=== PATIENT | male | born 1975 | race Caucasian/White ===

== ENCOUNTER 2024-02-11 09:36 | Emergency (ER) | payer SELFPAY ==
[2024-02-11 09:58] VITALS: BP 128/89
[2024-02-11] MEDS: VALIUM 5 MG PO (11:42)
--- NOTE | 2024-02-11 11:45 | ED.GENMED ---
History of Present Illness
General
Chief Complaint: Abdominal Symptoms
Source: patient
Exam Limitations: none
Time Seen by Provider: 02/11/24 10:52
Nursing documentation reviewed up to this point in time: agreed with
Travel History
Have you had any contact with someone who has COVID-19?: No
Do you have any symptoms of coronavirus? Fever > 100 degrees, chills, cough, shortness of breath, sore throat, loss of taste or smell, muscle aches, or headache?: No
History of Present Illness
History of Present Illness:
Patient is a 48-year-old male who reports he has had inguinal hernia on the right side for the past 3 however has not wanted to have surgery. He reports he reduces it daily and pushes the hernia from the scrotum back into his abdomen. This morning
however after pain meds but he was not able to reduce it. He complains of a lot of pain swelling mostly to the right groin and right testicle area. His pain however is over the right groin. He has been to many surgeons but does not want have
surgery. He reports he has a fear of needles as well as surgery. Patient presents very anxious restless.
Past History
Past History
ED Past Medical History: None
ED Past Surgical History: None
Social History
Personal: Single
Living: with family
Employment: Employed
Review of Systems
Review of Systems
Allergies reviewed?: Yes
All Other Systems: ROS reviewed and negative except as documented in HPI and ROS
Constitutional: Reports no symptoms; Denies fever, fatigue or chills
Respiratory: Reports no symptoms
Cardiac: Reports no symptoms
ABD/GI: Reports other (pain /swelling to right inguinal region )
: Reports other (pain swelling to right inguinal region and right testicle region ); Denies dysuria, incontinence, urgency or discharge
Musculoskeletal: Reports no symptoms
Skin: Reports no symptoms
Psychiatric: Reports no symptoms
Phy Exam
General Physical Exam
General Presentation: no apparent distress
General age: appears stated age
General Skin: warm and dry
General Habitus: normal
General Mental: alert
General Hydration: appears well hydrated
Gastrointestinal Exam
Gastrointestinal Exam: normal bowel sounds, soft and other (Obvious swelling to right inguinal area into right testicle, hernia palpated is very firm and tender increased pain over inguinal region )
Neurological Exam
Neurological Exam: alert and oriented x3
Musculoskeletal Exam
Musculoskeletal Exam: full ROM
Skin Exam
Skin Exam: normal color and warm/dry
Psychiatric Exam
Psychiatric Exam: normal mood/affect
Course
Orders/Labs/Results
Orders:
Orders
02/11/24 11:40
Diazepam [Valium] 5 mg .ROUTE .STK-MED ONE
Diazepam [Valium] 5 mg PO NOW STA
02/11/24 12:20
CT Abd/pel W Iv And Oral Contr Urgent
Comment:
Reason For Exam: hernia to right inguinal. area
HYDROmorphone [Dilaudid] 1 mg IV NOW STA
Iohexol [Omnipaque] See Protocol PO NOW STA
02/11/24 12:27
Complete Blood Count/With Diff Urgent
Comprehensive Metabolic Panel Urgent
Lipase Urgent
02/11/24 12:29
Ondansetron Injectable [Zofran] 4 mg .ROUTE .STK-MED ONE
02/11/24 13:04
HYDROmorphone [Dilaudid] 0.5 mg .ROUTE .STK-MED ONE
02/11/24 13:11
HYDROmorphone [Dilaudid] 0.5 mg IV NOW STA
02/11/24 13:42
HYDROmorphone [Dilaudid] 0.5 mg IV NOW STA
Abnormal Lab Results
02/11/24
12:27
RBC 4.36 L 10^6/uL
(4.70-6.10)
MCH 31.2 H pg
(27.0-31.0)
MPV 10.6 H fL
(7.4-10.4)
Absolute Neuts (auto) 7.0 H 10^3/uL
(1.4-6.5)
Neutrophils % 79.6 H %
(42.2-75.2)
Lymphocytes % 14.7 L %
(20.5-51.1)
Glucose 129 H mg/dl
(70-99)
02/11/24 12:27
02/11/24 12:27
Vital Signs
Initial and Last Documented VS:
Initial Vital Signs
Temp Pulse Resp BP Pulse Ox
98.0 F 101 16 128/89 98
02/11/24 09:58 02/11/24 09:58 02/11/24 09:58 02/11/24 09:58 02/11/24 09:58
Last Documented Vital Signs
Temp Pulse Resp BP Pulse Ox
98.0 F 78 18 139/82 99
02/11/24 09:58 02/11/24 14:06 02/11/24 14:06 02/11/24 14:06 02/11/24 14:06
Pocketed Spring Assembler consulted with Physician
Pocketed Spring Assembler consulted with physician?: Yes
Name of Physician Consulted: Noh
MDM/Problems Addressed
Differential Diagnosis Includes:
Not limited to hernia, incarcerated hernia
MDM/Problems Addressed:
Patient is a 48-year-old male with 3 years history of chronic inguinal hernia worse on the right reports was unable to reduce hernia after playing basketball. Patient is very anxious initially refusing any medication refusing IV line refusing blood
work etc. He reports he has been to multiple surgeons all of which have stated that he needs surgery but he refuses surgery.
On exam he is very uncomfortable there is significant swelling and firmness in the right inguinal area there is swelling to scrotal area. Patient very tender to palpation. PT given Valium for anxiety .
155: Patient had blood work drawn as well as pain medication and CAT scan. Radiology reports there is a 13 cm inguinal hernia which contains a feces filled cecum and distal loops of ileum likely incarceration and strangulation, however I was
informed by nurse that patient self reduced his hernia. On reexam patient has no swelling no fullness no appreciate deformity hernia and is much more comfortable. I spoke with surgery Dr. Dimas who will see patient as outpatient tomorrow .
*Radiology
Radiology exam reviewed: radiology read reviewed
*Pulse Oximetry
Patient hypoxic: no
*Critical Care Note
Total Time (30-74mins, 75-104mins- exclusive of procedures): Not Applicable
Data Reviewed
Review of Other/Old Records Reveals: Radiology Studies (CAT scan from 2022 shows large right-sided indirect inguinal hernia containing loops of nondilated distal small bowel extending into the scrotal sac, small fat-containing left inguinal hernia)
ED Attending Note
-
Portions of this chart may have been created with voice recognition software.� Occasional wrong word or��sound alike� substitutions may have occurred due to the inherent limitations of voice recognition software.
Discharge Plan
Departure
Patient Disposition: Home (Routine Discharge)
Date of Disposition: 02/11/24
Time of Disposition: 15:59
Patient with high blood pressure during this ER visit?: Yes
Condition: Fair
Covid-19: Not Applicable
Discharge Problem:
Hernia
Instructions: Groin Hernia (DC), BLOOD PRESSURE
Prescriptions:
No Action
calcium carbonate [Antacid (calcium carbonate)] 500 MG tablet,chewable
1,000 mg PO Q4HPRN PRN (Reason: heartburn)
hzmbbjc-njapinvxypepm-tvsqxqeh [Excedrin Extra Strength] 1 TABLET tablet
1 tab PO PRN PRN (Reason: REYNOLDS)
Referrals:
Wayne Dimas MD [Active] -
NONE,* [Family Provider] -
Activity Restrictions/Additional Instructions:
You will receive a call from surgery office for an appointment. Please follow-up with surgeon as discussed. In the meantime avoid straining to have a bowel movement. you may take mndd-ggy-mprviks stool softeners. Minimize lifting coughing
sneezing. Return if any worsening of symptoms.
Interventions
Interventions:
*Risk Screen - Suicide Last Done: 02/11/24 12:10
*General Assessment Last Done: 02/11/24 12:10
*Neglect/Abuse Screening Last Done: 02/11/24 12:10
*ED COVID-19 Vaccine History Last Done: 02/11/24 09:58
XE-Ehptia-Kkinlsfvpf Assessment Last Done: 02/11/24 12:10
Discharge Date and Time
Print Language: MALDIVIAN
[2024-02-11] MEDS: OMNIPAQUE 50 ML PO (12:31)
[2024-02-11] MEDS: DILAUDID 1 MG IV (12:31)
[2024-02-11 12:35] LABS: % Basophils 0.2 % (0-2); % Immature Granulocytes 0.2 % (0-0.5); % Lymphocytes 14.7 % (20.5-51.1); % Monocytes 5.3 % (1.7-9.3); % Neutrophils 79.6 % (42.2-75.2); Absolute Lymphocytes 1.3 10^3/uL (1.2-3.4); Absolute Monocytes 0.5 10^3/uL (0.1-0.6); Hematocrit 39.9 % (39.0-52.0); Hemoglobin 13.6 g/dL (13.0-18.0); Mean Corp Hgb Conc. 34.1 g/dL (33.0-37.0); Mean Corpuscular Hgb 31.2 pg (27.0-31.0); Mean Corpuscular Volume 91.5 fL (80.0-94.0); Mean Platelet Volume 10.6 fL (7.4-10.4); Nucleated Red Blood Cells % 0 % (-); Platelet Count 225 10^3/uL (130-400); Red Blood Cell Count 4.36 10^6/uL (4.70-6.10); Red Cell Dist. Width 12.9 % (11.5-14.5); White Blood Cell Count 8.8 10^3/uL (4.8-10.8)
[2024-02-11 12:51] LABS: ALT (SGPT) 18 U/L (0-50); AST (SGOT) 31 U/L (17-59); Alkaline Phosphatase 58 U/L (38-126); Blood Urea Nitrogen 19 mg/dl (9-20); Calcium 10.2 mg/dl (8.4-10.2); Carbon Dioxide 25 mmol/L (22-30); Chloride 104 mmol/L (98-107); Glucose 129 mg/dl (70-99); Lipase 90 U/L (23-300); Potassium 4.2 mmol/L (3.5-5.1); Sodium 141 mmol/L (135-145); Total Bilirubin 0.4 mg/dl (0.2-1.3); Total Protein 7.8 g/dl (6.3-8.2); eGFR > 60.00
[2024-02-11] MEDS: DILAUDID 0.5 MG IV ×2 (13:11→13:42)
[2024-02-11 14:06] VITALS: BP 139/82
== END 2024-02-11 17:05 | disposition home or self-care (01) ==
LOC: EMR 09:36
PROVIDERS: Nurse Practitioner; EMERGENCY PHYSICIAN Emergency Medicine
DX: K42.9 Umbilical hernia without obstruction or gangrene (principal); R03.0 Elevated blood-pressure reading, without diagnosis of hypertension; K21.9 Gastro-esophageal reflux disease without esophagitis
CPT/HCPCS: 99285; 96374; 96376; 74177; 80053; 83690; 85025; Q9967

== ENCOUNTER 2025-04-22 07:38 | Emergency (ER) | payer SELFPAY ==
[2025-04-22 07:42] VITALS: BP 113/91
[2025-04-22 07:56] VITALS: BMI 27.3
--- NOTE | 2025-04-22 08:20 | ED.GENMED ---
History of Present Illness
General
Chief Complaint: Musculo-Skeletal Complaint
Source: patient
Exam Limitations: none
Time Seen by Provider: 04/22/25 07:57
Nursing documentation reviewed up to this point in time: agreed with
History of Present Illness
History of Present Illness:
Patient is a 49-year-old healthy male who presents to the emergency department for evaluation of right shoulder pain. Patient states he was playing basketball this morning when both him and another one of the players were reaching for the ball. He
states they were pulling at the ball opposite each other when he heard a pop in his right shoulder. He reports pain in the anterior aspect of his right shoulder, worse with movement. He now reports a sharp pain in his right shoulder radiating down
into the right elbow/hand. He denies any numbness/tingling in RUE.
There was no head strike or other associated injuries.
Past History
Past History
ED Past Medical History: None
ED Past Surgical History: None
Social History
Personal: Single
Living: with family
Employment: Employed
Review of Systems
Review of Systems
Allergies reviewed?: Yes
All Other Systems: ROS reviewed and negative except as documented in HPI and ROS
Phy Exam
Physical Exam
Physical Exam:
Vitals: Patient's vital signs are stable. Afebrile
General: Patient is well appearing, no acute distress
Skin: Warm and dry, no rashes or lesions
Head: Normocephalic, atraumatic
Throat: Protecting airway
Neck: Normal ROM, no cervical spine tenderness
Cardiac: Regular rate
Pulm: No apparent respiratory distress
Abdomen: Nondistended
Extremities: No obvious deformity of right upper extremity. Tenderness at anterior aspect of right shoulder without any bony tenderness of clavicle, humerus. No bony tenderness of right elbow or right forearm. No Norman deformity. No point
tenderness at AC joint. Patient has full ability to flex/extend at right elbow and right shoulder. Limited active abduction of right shoulder secondary to pain. 2+ palpable right radial and brachial pulse with normal capillary refill.
Neuro: Grossly intact
Psychiatric: Normal affect.
Course
Orders/Labs/Results
Orders:
Orders
04/22/25 07:44
Shoulder, Right, Trauma [CR Shoulder, Trauma - Right] Urgent
Comment: pt reached for the ball and felt a pop
Reason For Exam: right shoulder pain while playing basketball
04/22/25 08:18
Ibuprofen [Motrin] 600 mg PO NOW STA
04/22/25 08:19
Ibuprofen [Motrin] 600 mg .ROUTE .STK-MED ONE
04/22/25 08:30
Sling Right-Treatment ONCE
Vital Signs
Initial and Last Documented VS:
Initial Vital Signs
Temp Pulse Resp BP Pulse Ox
99.0 F 93 16 113/91 98
04/22/25 07:42 04/22/25 07:42 04/22/25 07:42 04/22/25 07:42 04/22/25 07:42
Last Documented Vital Signs
Temp Pulse Resp BP Pulse Ox
99.0 F 93 16 113/91 98
04/22/25 07:42 04/22/25 07:42 04/22/25 07:42 04/22/25 07:42 04/22/25 08:30
MDM/Problems Addressed
Differential Diagnosis Includes:
Not limited to: Shoulder dislocation, AC joint separation, rotator cuff strain/tear, shoulder tendinitis, bicep tendon rupture, etc.
MDM/Problems Addressed:
49-year-old male with right shoulder pain after injury playing tapia close morning. History of pulling type mechanism without any direct blow to his shoulder. Pain localized to right shoulder radiating down to right elbow with limited abduction.
Stable vital signs on arrival. On exam�patient has no obvious deformity or bony tenderness of right upper extremity however does have tenderness at anterior aspect of shoulder exacerbated with abduction w/ limited range of motion. No Norman
deformity or difficulty with flexion/extension at right elbow. RUE neurovascularly intact.
An x-ray of the right shoulder was obtained without any evidence of acute fracture.
Ultimately�suspect deltoid strain/rotator cuff strain. No evidence of bicep tendon rupture. Will place patient in shoulder sling and advised ice, NSAIDs for pain, orthopedic follow-up as needed. Patient comfortable with plan.
Chronic conditions affecting care:
N/A
Acute Exacerbation and/or Progression of Chronic Illness:
N/A
*Radiology
Radiology exam reviewed: preliminary read by ED provider (Shoulder x-ray reviewed by me-no acute fracture or dislocation) and radiology read reviewed
*Pulse Oximetry
SaO2: 98
Oxygen Mode of Delivery: Room air
Patient hypoxic: no
*EKG
Interpreted by ED Provider?: NA
*Grey Percher Interpretation
Rate: Grey Percher- N/A
*Critical Care Note
Total Time (30-74mins, 75-104mins- exclusive of procedures): Not Applicable
ED Attending Note
-
Portions of this chart may have been created with voice recognition software.� Occasional wrong word or��sound alike� substitutions may have occurred due to the inherent limitations of voice recognition software.
Discharge Plan
Departure
Patient Disposition: Home (Routine Discharge)
Date of Disposition: 04/22/25
Time of Disposition: 08:40
Patient with high blood pressure during this ER visit?: Yes
Discharge Problem:
Right shoulder injury
Instructions: Rotator cuff injury
Prescriptions:
No Action
calcium carbonate [Antacid (calcium carbonate)] 500 MG tablet,chewable
1,000 mg PO Q4HPRN PRN (Reason: heartburn)
[id number]-wisfbxylxjnud-smrflkxv [Excedrin Extra Strength] 1 TABLET tablet
1 tab PO PRN PRN (Reason: REYNOLDS)
Referrals:
Haroon Patricia MD [Family Provider, Family Practice]
Blake Nolan MD [Active, Orthopedics] - Follow up in 1 week
Activity Restrictions/Additional Instructions:
RETURN TO THE EMERGENCY DEPARTMENT FOR ANY INTRACTABLE PAIN, NUMBNESS/TINGLING IN RIGHT UPPER EXTREMITY, WORSENING OF SCURRENT SYMPTOMS, OR ANY OTHER CONCERNS
- As discussed�your x-ray showed no evidence of fracture or dislocation. I suspect you likely sustained a muscular injury to your rotator cuff muscles.
- You can take Motrin as needed for pain. Continue to apply ice to right shoulder. Keep shoulder in sling however continue to range your shoulder joint to prevent a frozen shoulder.
- Follow-up with orthopedics for further evaluation/management if symptoms persist as you may require further imaging
Monitor your symptoms closely and return to the emergency department with any acute worsening/new symptoms or any other concerns
Interventions
Interventions:
*Risk Screen - Suicide Last Done: 04/22/25 07:42
*General Assessment Last Done: 04/22/25 07:56
*Neglect/Abuse Screening Last Done: 04/22/25 07:42
*ED- Fall Risk Assessment Last Done: 04/22/25 07:56
*ED COVID-19 Vaccine History Last Done: 04/22/25 07:56
ED-Musculoskeletal Assessment Last Done: 04/22/25 07:58
Discharge Date and Time
Print Language: SWISS
[2025-04-22] MEDS: MOTRIN 600 MG PO (08:21)
== END 2025-04-22 08:49 | disposition home or self-care (01) ==
LOC: EMR 07:38
PROVIDERS: EMERGENCY PHYSICIAN Emergency Medicine; FAMILY PHYSICIAN Family Medicine
DX: S49.91XA Unspecified injury of right shoulder and upper arm, initial encounter (principal); X50.1XXA Overexertion from prolonged static or awkward postures, initial encounter; Y93.67 Activity, basketball
CPT/HCPCS: 99283; 73030